=== PATIENT | female | born 1980 | race Caucasian/White ===

== ENCOUNTER 2024-12-14 08:19 | Day surgery (SDC) | payer OTHER ==
[2024-12-11 16:41] VITALS: BMI 21.1
[2024-12-14 11:30] VITALS: BP 105/51; PULSE 74; RESP 16; TEMP 97.7
== END 2024-12-14 11:58 | disposition home or self-care (01) ==
LOC: FASU-ENDO 08:19
PROVIDERS: ATTEND Internal Medicine Gastroenterology
PROC: 0DJD8ZZ Inspection of Lower Intestinal Tract, Via Natural or Artificial Opening Endoscopic (ICD-10-PCS; principal; 2024-12-14 11:03)
DX: Z12.11 Encounter for screening for malignant neoplasm of colon (principal)
CPT/HCPCS: 81025